=== PATIENT | male | born 1990 | race Caucasian/White ===

== ENCOUNTER 2018-03-11 10:17 | Emergency (ER) | payer SELFPAY ==
--- NOTE | 2018-03-11 12:00 | EDM.PDOC ---
Scribed by Kerri Lema 03/11/18 1156 for Toñito Vasquez MD ED HPI GENERAL MEDICAL PROBLEM - General Chief Complaint: ENT Problem Stated Complaint: BUG IN EAR, [id number] Time Seen by Provider: 03/11/18 11:49 Source of Information: Reports: Patient, RN, RN Notes Reviewed History Limitations: Reports: No Limitations - History of Present Illness INITIAL COMMENTS - FREE TEXT/NARRATIVE: Patient presents to ER with the complaint of a bug in his right ear. Onset: Today Duration: Constant Location: Reports: Other (right ear) Quality: Reports: Ache Severity: Severe Improves with: Reports: None Worsens with: Reports: None Associated Symptoms: Reports: No Other Symptoms Right Ear Pain Score (Numeric/FACES): 8 - Related Data Allergies Allergy/AdvReac Type Severity Reaction Status Date / Time No Known Allergies Allergy Verified 03/11/18 10:32 Home Meds: Home Meds . [No Known Home Meds] 03/11/18 [History] Past Medical History - Past Health History Medical/Surgical History: Denies Medical/Surgical History Social & Family History - Family History Family Medical History: Noncontributory - Tobacco Use Smoking Status *Q: Current Every Day Smoker Years of Tobacco use: 10 Packs/Tins Daily: 1.5 Used Tobacco, but Quit: No - Caffeine Use Caffeine Use: Reports: Soda - Recreational Drug Use Recreational Drug Use: No ED ROS ENT - Review of Systems Review Of Systems: ROS reveals no pertinent complaints other than HPI. ED EXAM, ENT - Physical Exam Exam: See Below Exam Limited By: No Limitations General Appearance: Alert, WD/WN, No Apparent Distress Ears: Canal Foreign Body (large insect right canal), Other (bilateral ears otherwise normal to exam) Nose: Normal Inspection Mouth/Throat: Normal Inspection Neurological: Alert, No Motor/Sensory Deficits ED ENT PROCEDURES - Foreign Body Removal Indication:: Insect FB in Rt external auditory canal. Consent Obtained: Patient Performing Doctor:: Toñito Vasquez Foreign Body Other Location Comment:: Rt ear canal Anesthesia Type: None Findings: Large live insect removed with alligator forceps. Complications: No Course - Vital Signs Last Recorded V/S: Last Vital Signs Temp 37.3 C 03/11/18 10:29 Pulse 104 H 03/11/18 10:29 Resp 16 02/03/19 10:29 BP 125/56 L 03/11/18 10:29 Pulse Ox 99 03/11/18 10:29 Departure - Departure Time of Disposition: 11:54 Disposition: Home, Self-Care 01 Condition: Good Clinical Impression: Foreign body in right ear, initial encounter - Discharge Information *PRESCRIPTION DRUG MONITORING PROGRAM REVIEWED*: Not Applicable *COPY OF PRESCRIPTION DRUG MONITORING REPORT IN PATIENT MELE: Not Applicable Instructions: Ear Foreign Body, [id number] Forms: ED Department Discharge Additional Instructions: Follow up in clinic if any further problems. I have read and agree with the documentation that has been completed regarding this visit. By signing this record, I attest that the documentation was completed in my physical presence and is an accurate record of the encounter.
== END 2018-03-11 12:04 | disposition home or self-care (01) ==
LOC: DL.ED 10:17
DX: T16.1XXA Foreign body in right ear, initial encounter (principal); F17.210 Nicotine dependence, cigarettes, uncomplicated; X58.XXXA Exposure to other specified factors, initial encounter
CPT/HCPCS: 69200; 99282

== ENCOUNTER 2019-10-02 08:04 | Emergency (ER) | payer SELFPAY ==
[2019-10-02] MEDS ORDERED: Iopamidol 612 MG/ML 100 ML Bottle IVPUSH ONE (08:24)
--- NOTE | 2019-10-02 08:37 | EDM.PDOC ---
ED HPI GENERAL MEDICAL PROBLEM - General Chief Complaint: Upper Extremity Injury/Pain Stated Complaint: ARM WOUND Time Seen by Provider: 10/02/19 08:15 Source of Information: Reports: Patient History Limitations: Reports: No Limitations - History of Present Illness INITIAL COMMENTS - FREE TEXT/NARRATIVE: This 28 yo male patient reports to the ED with a bump on his left arm. The patient reports he noticed the bump 5 days ago. The patient admits to IV Heroin use and he thinks he may have missed the vein. The patient reports he does not think the area is getting any bigger. The patient reports his last heroin use was 5 days ago. The patient reports no desire to stop using heroin. Duration: Day(s):, Constant Location: Reports: Upper Extremity, Left Quality: Reports: Other Severity: Moderate Improves with: Reports: None Worsens with: Reports: None Context: Reports: Other Associated Symptoms: Reports: No Other Symptoms - Related Data Allergies Allergy/AdvReac Type Severity Reaction Status Date / Time No Known Allergies Allergy Verified 10/02/19 08:14 Home Meds: Home Meds . [No Known Home Meds] 03/11/18 [History] Past Medical History - Past Health History Medical/Surgical History: Denies Medical/Surgical History HEENT History: Reports: None Cardiovascular History: Reports: None Respiratory History: Reports: None Gastrointestinal History: Reports: None Genitourinary History: Reports: None Musculoskeletal History: Reports: None Neurological History: Reports: None Psychiatric History: Reports: None Endocrine/Metabolic History: Reports: None Hematologic History: Reports: None Immunologic History: Reports: None Oncologic (Cancer) History: Reports: None Dermatologic History: Reports: None - Infectious Disease History Infectious Disease History: Reports: None - Past Surgical History Head Surgeries/Procedures: Reports: None Social & Family History - Family History Family Medical History: Noncontributory - Tobacco Use Smoking Status *Q: Current Every Day Smoker Years of Tobacco use: 9 Packs/Tins Daily: 1 Second Hand Smoke Exposure: No - Caffeine Use Caffeine Use: Reports: None - Recreational Drug Use Recreational Drug Type: Reports: Heroin Review of Systems - Review of Systems Review Of Systems: Comprehensive ROS is negative, except as noted in HPI. ED EXAM, GENERAL - Physical Exam Exam: See Below Exam Limited By: No Limitations General Appearance: Alert, WD/WN, No Apparent Distress Eye Exam: Bilateral Eye: EOMI, Normal Inspection, PERRL Ears: Normal External Exam, Normal Canal, Hearing Grossly Normal, Normal TMs Nose: Normal Inspection, Normal Mucosa, No Blood Throat/Mouth: Normal Inspection, Normal Lips, Normal Teeth, Normal Gums, Normal Oropharynx, Normal Voice, No Airway Compromise Head: Atraumatic, Normocephalic Neck: Normal Inspection, Supple, Non-Tender, Full Range of Motion Respiratory/Chest: No Respiratory Distress, Lungs Clear, Normal Breath Sounds, No Accessory Muscle Use, Chest Non-Tender Cardiovascular: Normal Peripheral Pulses, Regular Rate, Rhythm, No Edema, No Gallop, No JVD, No Murmur, No Rub GI/Abdominal: Normal Bowel Sounds, Soft, Non-Tender, No Organomegaly, No Distention, No Abnormal Bruit, No Mass (Male) Exam: Deferred Rectal (Males) Exam: Deferred Back Exam: Normal Inspection Extremities: Arm Pain (left AC) Neurological: Alert, Oriented, CN II-XII Intact, Normal Cognition, Normal Gait, Normal Reflexes, No Motor/Sensory Deficits Psychiatric: Normal Affect, Normal Mood Skin Exam: Other (1.5 cm mass in right with no erythema) ED TRAUMA EXTREMITY PROCEDURES - I&D Site: Left AC Skin Prep: Providone-Iodine (Betadine), Isopropyl Alcohol (Alcohol) Local Anesthesia: Lidocaine: 1% Plain Local Anesthetic Volume: 2cc Area Incised With: Needle Drainage: Purulent, Bloody, Small Amount Probed to Break Up Loculations: Yes Packed With: None Sterile Dressinx4(s) Complications: No Course - Vital Signs Last Recorded V/S: Last Vital Signs Temp 36.3 C 10/02/19 08:11 Pulse 76 10/02/19 08:11 Resp 16 10/02/19 08:11 BP 104/67 10/02/19 08:11 Pulse Ox 98 10/02/19 08:11 - Orders/Labs/Meds Meds: Medications Discontinued Medications Generic Name Dose Route Start Last Admin Trade Name Mary PRN Reason Stop Dose Admin Iopamidol 100 ml 10/02/19 08:24 10/02/19 08:50 Isovue-300 (61%) IVPUSH 10/02/19 08:25 100 ml ONETIME ONE Administration Lidocaine HCl 30 ml 10/02/19 09:19 10/02/19 09:25 Xylocaine-Mpf 1% INJECT 10/02/19 09:20 30 ml ONETIME ONE Administration Departure - Departure Time of Disposition: 09:36 Disposition: Home, Self-Care 01 Condition: Fair Clinical Impression: Abscess of left arm - Discharge Information *PRESCRIPTION DRUG MONITORING PROGRAM REVIEWED*: Not Applicable *COPY OF PRESCRIPTION DRUG MONITORING REPORT IN PATIENT MELE: Not Applicable Instructions: Skin Abscess, [id number] Forms: ED Department Discharge Care Plan Goals: The patient was advised of the examination results during the visit. The patient was discharged with a script for Clindamycin (300 mg) to take 1 by mouth 4 times per day for 10 days. The patient was encouraged to use a heating pad over the area. If the patient has any additional symptoms or concerns, the patient should follow-up with his primary care facility or return to the emergency department. Sepsis Event Note (ED) - Evaluation Sepsis Screening Result: No Definite Risk - Focused Exam Vital Signs: Vital Signs Temp Pulse Resp BP Pulse Ox 10/02/19 08:11 36.3 C 76 16 104/67 98
--- NOTE | 2019-10-02 09:14 | CT ---
PROCEDURE INFORMATION: Exam: CT Left Upper Extremity With Contrast, Elbow Exam date and time: 10/02/2019 8:44 AM Age: 28 years old Clinical indication: Other: Abscess left ac TECHNIQUE: Imaging protocol: CT of the Left upper extremity with intravenous contrast was performed. Exam focused on the elbow. Radiation optimization: All CT scans at this facility use at least one of these dose optimization techniques: automated exposure control; mA and/or kV adjustment per patient size (includes targeted exams where dose is matched to clinical indication); or iterative reconstruction. Contrast material: ISOVUE 300; Contrast volume: 100 ml; Contrast route: INTRAVENOUS (IV); COMPARISON: No relevant prior studies available. FINDINGS: Bones/joints: No acute fracture or dislocation is identified. There is no osseous erosion or cortical destruction. No significant joint effusion is evident. Soft tissues: An external marker is present anteriorly over the antecubital fossa. In the subcutaneous tissues deep to this, there is a thick-walled centrally hypodense focus measuring 1.8 x 0.9 x 1.4 cm, which could represent an early abscess. There is no gas within it or the soft tissues elsewhere, and there is mild surrounding soft tissue edema. No similar lesion is evident elsewhere. IMPRESSION: Thick walled, centrally hypodense subcutaneous focus in the antecubital fossa measuring up to 1.8 cm, could represent early abscess.
[2019-10-02] MEDS ORDERED: Lidocaine 1% 30 ML SDV INJECT ONE (09:19)
== END 2019-10-02 09:45 | disposition home or self-care (01) ==
LOC: DL.ED 08:04
DX: L02.414 Cutaneous abscess of left upper limb (principal); F17.210 Nicotine dependence, cigarettes, uncomplicated
CPT/HCPCS: 10060; 73201; 99283; J2001; Q9967